=== PATIENT | female | born 1990 | race Caucasian/White ===

== ENCOUNTER 2018-05-27 22:37 | Emergency (ER) | payer SELFPAY ==
[2018-05-27] MEDS ORDERED: cefTRIAXone\\ROCEPHIN 1 GM VIAL ONE (22:55)
[2018-05-27] MEDS ORDERED: Ibuprofen 800 MG TAB ONE (22:55)
[2018-05-27] MEDS ORDERED: Acetaminophen 500 MG TAB ONE (23:01)
== END 2018-05-27 23:13 | disposition home or self-care (01) ==
LOC: MADERS 22:37
DX: H66.92 Otitis media, unspecified, left ear (principal); F17.210 Nicotine dependence, cigarettes, uncomplicated; I10 Essential (primary) hypertension
CPT/HCPCS: 96372; J0696